=== PATIENT | male | born 1945 | race Caucasian/White ===

== ENCOUNTER 2025-01-15 05:55 | Day surgery (SDC) | payer MEDICARE, BC ==
[2024-11-22 10:31] VITALS: BMI 26.8
[2025-01-15] MEDS ORDERED: Famotidine/PF 20 mg/2ml Vial ONE (07:13)
[2025-01-15] MEDS ORDERED: Acetaminophen 500 MG TAB ONE (07:13)
[2025-01-15] MEDS ORDERED: Bupivacaine/Epinephrine 0.25% 30 ML VIAL ONE (07:15)
[2025-01-15] MEDS ORDERED: PROPOFOL 20 ML ONE (08:12)
[2025-01-15] MEDS ORDERED: Ondansetron PF 4 MG/2 ML Vial ONE ×2 (08:14→11:27)
[2025-01-15] MEDS ORDERED: Rocuronium Bromide 10 MG/ML (10ML VIAL) ONE (08:14)
[2025-01-15] MEDS ORDERED: Lidocaine 1% PF 5 ML VIAL ONE (08:14)
[2025-01-15] MEDS ORDERED: CEFAZOLIN 2 GM VIAL ONE (08:26)
[2025-01-15] MEDS ORDERED: Neostigmine 1 MG/ML in 5 ML SYRINGE ONE (09:23)
[2025-01-15] MEDS ORDERED: HYDROcodone/Acetaminophen 5/325 mg Tablet ONE (10:57)
== END 2025-01-15 11:40 | disposition home or self-care (01) ==
LOC: CSHSDC 05:55
PROVIDERS: ATTEND Surgery
PROC: 0YQ54ZZ Repair Right Inguinal Region, Percutaneous Endoscopic Approach (ICD-10-PCS; principal; 2025-01-15)
DX: K40.90 Unilateral inguinal hernia, without obstruction or gangrene, not specified as recurrent (principal); I10 Essential (primary) hypertension; E11.9 Type 2 diabetes mellitus without complications; E78.00 Pure hypercholesterolemia, unspecified; Z88.0 Allergy status to penicillin; Z79.899 Other long term (current) drug therapy
CPT/HCPCS: 49650; J1100; J2405; J2704; J3010; J3490; C1781; J1308; S2900